=== PATIENT | female | born 1965 | race Caucasian/White ===

== ENCOUNTER 2017-12-24 17:17 | Inpatient (IN) | payer BC ==
[~2017-12-24] VITALS: Ht 160 cm; Wt 88.0 kg
[2017-12-24 16:40] VITALS: BP 108/50
[2017-12-24] MEDS ORDERED: ASPI-1159 PO ×2 (17:44→18:48)
[2017-12-24] MEDS ORDERED: LOSA50TA20 MT (17:44)
[2017-12-24 18:00] VITALS: BP 128/91
[2017-12-24] MEDS ORDERED: ONDANSETRON HCL 4MG/2ML VIAL IV PRN (18:00)
[2017-12-24] MEDS ORDERED: DIPHENHYDRAMINE 50MG/ML VIAL IV PRN (18:00)
[2017-12-24] MEDS ORDERED: CLONIDINE 0.1MG TABLET PO PRN (18:00)
[2017-12-24] MEDS ORDERED: IPRATROPIUM/ALBUTEROL 0.5-3(2.5)MG/3ML NEB INH PRN (18:00)
[2017-12-24] MEDS ORDERED: NA PHOS,M-B/NA PHOS,DI-BA ENEMA 118ML PR PRN (18:00)
[2017-12-24] MEDS ORDERED: ACETAMINOPHEN 650MG/20.3ML UDC GT PRN (18:00)
[2017-12-24] MEDS ORDERED: HYDROCODONE/ACETAMINOPHEN 5/325MG TABLET PO PRN (18:00)
[2017-12-24] MEDS ORDERED: ACETAMINOPHEN 650MG SUPP PR PRN (18:00)
[2017-12-24] MEDS ORDERED: MAGNESIUM/ALUMINUM HYDROXIDE/SIMETHICONE 30ML UDC PO PRN (18:00)
[2017-12-24] MEDS ORDERED: MORPHINE SULFATE 2 MG/ML CPJ (NOT FOR IM USE) IV PRN (18:00)
[2017-12-24] MEDS ORDERED: ACETAMINOPHEN 325MG TABLET PO PRN (18:00)
[2017-12-24] MEDS ORDERED: ONDANSETRON 4MG ODT PO PRN (18:30)
[2017-12-24] MEDS ORDERED: LEVO50TA8 PO (18:48)
[2017-12-24] MEDS ORDERED: ACET-2853 PO (18:48)
[2017-12-24] MEDS ORDERED: AMLO5TAB88 PO (18:48)
[2017-12-24] MEDS ORDERED: PANT40TA4 PO (18:48)
[2017-12-24] MEDS ORDERED: METO-539 PO (18:48)
[2017-12-24] MEDS ORDERED: LOSA50TA20 PO (18:48)
[2017-12-24] MEDS ORDERED: ATOR40TA70 PO (18:48)
[2017-12-24] MEDS ORDERED: ENOX40DI8 SQ (18:48)
[2017-12-24 20:12] VITALS: BP 106/74
[2017-12-24] MEDS ORDERED: NITRO TOP (20:36)
[2017-12-24] MEDS ORDERED: NITROGLYCERIN TOP SCH (20:45)
[2017-12-24] MEDS: NITROGLYCERIN OINT 1GM/INCH UDPKT TD SCH (21:00)
[2017-12-24 21:29] LABS: CLARITY URINE CLEAR (CLEAR); COLOR URINE YELLOW (YELLOW); KETONES URINE NEGATIVE (NEGATIVE); NITRITE URINE NEGATIVE (NEGATIVE); OCCULT BLOOD URINE NEGATIVE (NEGATIVE); PROTEIN URINE NEGATIVE (NEGATIVE); SPECIFIC GRAVITY URINE 1.016 (1.005-1.030)
[2017-12-24 21:30] LABS: LEUKOCYTE ESTERASE URINE NEGATIVE (NEGATIVE); UROBILINOGEN URINE 0.2 E.U./dL (0.2-1.0)
[2017-12-24] MEDS: METOPROLOL TARTRATE 50MG TABLET PO SCH (21:36)
[2017-12-24] MEDS: LOSARTAN POTASSIUM 50 MG TABLET PO SCH (21:37)
[2017-12-24 21:48] LABS: *AMPHETAMINES SCREEN URINE NEGATIVE (NEGATIVE); *BARBITURATES SCREEN URINE NEGATIVE (NEGATIVE); *BENZODIAZEPINES SCREEN URINE NEGATIVE (NEGATIVE); *COCAINE SCREEN URINE NEGATIVE (NEGATIVE); METHADONE URINE SCREEN NEGATIVE (NEGATIVE)
[2017-12-24 21:49] LABS: CANNABINOID URINE SCREEN NEGATIVE (NEGATIVE); OPIATES URINE SCREEN NEGATIVE (NEGATIVE); PHENCYCLIDINE URINE SCREEN NEGATIVE (NEGATIVE)
[2017-12-24] MEDS ORDERED: ENOXAPARIN 80MG/0.8ML SYR SUBCUT NR (21:53)
[2017-12-24 22:00] VITALS: BP 101/68
[2017-12-24] MEDS ORDERED: MEDICATION NOT ON FORMULARY EA (Losartan Potassium 50 MG) PO SCH (22:00)
[2017-12-24] MEDS ORDERED: MEDICATION NOT ON FORMULARY EA (Metoprolol Tartrate 50 MG) PO SCH (22:00)
[2017-12-24] MEDS: SODIUM CHLORIDE 0.9% INJ 3ML FLUSH IVF SCH (23:07)
[2017-12-24 23:30] LABS: HEMATOCRIT 38.1 % (36.0-48.0); MEAN CORPUSCULAR HEMOGLOBIN 32.3 pg (28.0-32.0); MEAN CORPUSCULAR VOLUME 94.1 fL (81.0-99.0); PLATELET 271 x1000/uL (130-400); RED BLOOD CELL COUNT 4.04 mill/uL (4.2-5.4); RED CELL DISTRIBUTION WIDTH 13.7 % (11.6-14.6)
[2017-12-24 23:35] LABS: CHLORIDE 105 mEq/L (98-107)
[2017-12-24 23:42] LABS: LDL CHOLESTEROL 138 mg/dL (5-100)
[2017-12-24 23:44] LABS: CREATINE KINASE 102 IU/L (26-192); HDL CHOLESTEROL 34 mg/dL (40-59)
[2017-12-24 23:46] LABS: CREATINE KINASE MB FRACTION 0.8 ng/mL (0.5-3.6)
[2017-12-25] VITALS (12 sets, daily range): BP systolic 97–137; BP diastolic 36–81
[2017-12-25] MEDS: NITROGLYCERIN OINT 1GM/INCH UDPKT TD SCH ×3 (02:37→15:00)
[2017-12-25] MEDS: SODIUM CHLORIDE 0.9% INJ 3ML FLUSH IVF SCH ×3 (06:30→21:59)
[2017-12-25] MEDS: PANTOPRAZOLE 40MG DR TABLET PO SCH (06:30)
[2017-12-25] MEDS ORDERED: MEDICATION NOT ON FORMULARY EA (Pantoprazole Sodium 40 MG) PO SCH (06:50)
[2017-12-25 07:02] LABS: BASOPHILS % 0.6 % (0.0-2.0); EOSINOPHILS % 3.7 % (0.0-5.0); HEMATOCRIT. 39.7 % (36.0-48.0); HEMOGLOBIN. 13.5 g/dL (12.0-16.0); LYMPHOCYTES % 30.7 % (20.0-50.0); MEAN CORPUSCULAR HEMOGLOBIN 32.1 pg (28.0-32.0); MEAN CORPUSCULAR VOLUME 94.1 fL (81.0-99.0); MEAN PLATELET VOLUME 9.4 fl (7.4-10.4); MONOCYTES % 10.1 % (2.0-8.0); NEUTROPHILS % 54.9 % (40.0-76.0); PLATELET 258 x1000/uL (130-400); RED BLOOD CELL COUNT 4.22 mill/uL (4.2-5.4); RED CELL DISTRIBUTION WIDTH 13.6 % (11.6-14.6)
[2017-12-25 07:08] LABS: CHLORIDE 104 mEq/L (98-107)
[2017-12-25 08:09] LABS: CREATINE KINASE MB FRACTION 0.6 ng/mL (0.5-3.6)
[2017-12-25 08:33] LABS: LDL CHOLESTEROL 133 mg/dL (5-100)
[2017-12-25 08:35] LABS: CREATINE KINASE 72 IU/L (26-192); HDL CHOLESTEROL 38 mg/dL (40-59)
[2017-12-25] MEDS ORDERED: ENOXAPARIN 100MG/ML SYR SUBCUT SCH (09:00)
[2017-12-25] MEDS ORDERED: MEDICATION NOT ON FORMULARY EA (Amlodipine Besylate 5 MG) PO SCH (09:00)
[2017-12-25] MEDS: LEVOTHYROXINE SODIUM 50MCG TABLET PO SCH (09:01)
[2017-12-25] MEDS: AMLODIPINE 5MG TABLET PO SCH (09:02)
[2017-12-25] MEDS: ATORVASTATIN CALCIUM 40MG TABLET PO SCH (09:02)
[2017-12-25] MEDS: METOPROLOL TARTRATE 50MG TABLET PO SCH ×2 (09:02→17:00)
[2017-12-25] MEDS: LOSARTAN POTASSIUM 50 MG TABLET PO SCH ×2 (09:16→17:00)
[2017-12-25] MEDS ORDERED: CLOPIDOGREL 75MG TABLET PO NR (12:00)
[2017-12-25 15:39] LABS: T4 FREE 1.02 ng/dL (0.76-1.46)
[2017-12-25 15:43] LABS: CREATINE KINASE MB FRACTION 0.6 ng/mL (0.5-3.6)
[2017-12-25] MEDS: ENOXAPARIN 100MG/ML SYR SUBCUT SCH (21:00)
[2017-12-26] VITALS (12 sets, daily range): BP systolic 87–123; BP diastolic 41–78
[2017-12-26 00:16] LABS: CREATINE KINASE MB FRACTION 0.5 ng/mL (0.5-3.6)
[2017-12-26] MEDS: SODIUM CHLORIDE 0.9% INJ 3ML FLUSH IVF SCH ×3 (06:42→22:16)
[2017-12-26] MEDS: PANTOPRAZOLE 40MG DR TABLET PO SCH (06:42)
[2017-12-26 07:29] LABS: CREATINE KINASE 58 IU/L (26-192)
[2017-12-26 07:30] LABS: CREATINE KINASE MB FRACTION < 0.5 ng/mL (0.5-3.6)
[2017-12-26] MEDS: LOSARTAN POTASSIUM 50 MG TABLET PO SCH ×2 (09:01→17:00)
[2017-12-26] MEDS: AMLODIPINE 5MG TABLET PO SCH (09:01)
[2017-12-26] MEDS: ENOXAPARIN 100MG/ML SYR SUBCUT SCH (09:01)
[2017-12-26] MEDS: LEVOTHYROXINE SODIUM 50MCG TABLET PO SCH (09:01)
[2017-12-26] MEDS: CLOPIDOGREL 75MG TABLET PO SCH (09:01)
[2017-12-26] MEDS: METOPROLOL TARTRATE 50MG TABLET PO SCH ×2 (09:02→17:00)
[2017-12-26] MEDS: ATORVASTATIN CALCIUM 40MG TABLET PO SCH (09:02)
[2017-12-27] VITALS (21 sets, daily range): BP systolic 86–170; BP diastolic 56–84
[2017-12-27] MEDS: SODIUM CHLORIDE 0.9% INJ 3ML FLUSH IVF SCH ×3 (05:50→21:29)
[2017-12-27] MEDS ORDERED: IODIXANOL 320MG/ML 100 ML BOTTLE IV ONE (07:52)
[2017-12-27] MEDS ORDERED: LIDOCAINE HCL 1% 20ML VIAL (Pyxis) INJ ONE (07:52)
[2017-12-27] MEDS ORDERED: MIDAZOLAM HCL 2 MG/2 ML VIAL ONE (08:20)
[2017-12-27 09:00] LABS: CHLORIDE 106 mEq/L (98-107)
[2017-12-27] MEDS: AMLODIPINE 5MG TABLET PO SCH (09:00)
[2017-12-27] MEDS: LOSARTAN POTASSIUM 50 MG TABLET PO SCH ×2 (09:00→16:46)
[2017-12-27] MEDS ORDERED: FENTANYL CITRATE/PF 50MCG/ML 2ML VIAL ONE (09:02)
[2017-12-27] MEDS ORDERED: CEFAZOLIN 1000MG PREMIX 50 ML IV ONE (09:03)
[2017-12-27 09:20] LABS: BASOPHILS % 0.7 % (0.0-2.0); EOSINOPHILS % 2.9 % (0.0-5.0); HEMATOCRIT. 45.7 % (36.0-48.0); HEMOGLOBIN. 15.3 g/dL (12.0-16.0); LYMPHOCYTES % 29.1 % (20.0-50.0); MEAN CORPUSCULAR HEMOGLOBIN 32.3 pg (28.0-32.0); MEAN CORPUSCULAR VOLUME 96.4 fL (81.0-99.0); MEAN PLATELET VOLUME 8.8 fl (7.4-10.4); MONOCYTES % 8.6 % (2.0-8.0); NEUTROPHILS % 58.7 % (40.0-76.0); PLATELET 274 x1000/uL (130-400); RED BLOOD CELL COUNT 4.74 mill/uL (4.2-5.4); RED CELL DISTRIBUTION WIDTH 13.6 % (11.6-14.6)
[2017-12-27] MEDS ORDERED: ATROPINE SULFATE 1MG/10ML SYR IV PRN (09:30)
[2017-12-27] MEDS ORDERED: ACETAMINOPHEN 325MG TABLET PO PRN (09:30)
[2017-12-27] MEDS: ATORVASTATIN CALCIUM 40MG TABLET PO SCH (11:34)
[2017-12-27] MEDS: METOPROLOL TARTRATE 50MG TABLET PO SCH ×2 (11:34→16:46)
[2017-12-27] MEDS: LEVOTHYROXINE SODIUM 50MCG TABLET PO SCH (11:34)
[2017-12-27] MEDS: FAMOTIDINE 20MG TABLET PO SCH ×2 (11:35→16:39)
[2017-12-27] MEDS: CLOPIDOGREL 75MG TABLET PO SCH (11:43)
[2017-12-28] VITALS (37 sets, daily range): BP systolic 87–212; BP diastolic 38–97
[2017-12-28] MEDS: SODIUM CHLORIDE 0.9% INJ 3ML FLUSH IVF SCH ×3 (06:12→22:15)
[2017-12-28 06:33] LABS: CHLORIDE 105 mEq/L (98-107)
[2017-12-28 06:44] LABS: BASOPHILS % 0.6 % (0.0-2.0); EOSINOPHILS % 3.1 % (0.0-5.0); HEMATOCRIT. 40.1 % (36.0-48.0); HEMOGLOBIN. 13.9 g/dL (12.0-16.0); LYMPHOCYTES % 26.4 % (20.0-50.0); MEAN CORPUSCULAR HEMOGLOBIN 32.7 pg (28.0-32.0); MEAN CORPUSCULAR VOLUME 94.7 fL (81.0-99.0); MEAN PLATELET VOLUME 8.6 fl (7.4-10.4); MONOCYTES % 9.6 % (2.0-8.0); NEUTROPHILS % 60.3 % (40.0-76.0); PLATELET 262 x1000/uL (130-400); RED BLOOD CELL COUNT 4.24 mill/uL (4.2-5.4); RED CELL DISTRIBUTION WIDTH 13.7 % (11.6-14.6)
[2017-12-28] MEDS ORDERED: LIDOCAINE HCL 1% 20ML VIAL (Pyxis) INJ ONE (07:30)
[2017-12-28] MEDS ORDERED: MIDAZOLAM HCL 2 MG/2 ML VIAL ONE ×2 (08:36→09:03)
[2017-12-28] MEDS ORDERED: FENTANYL CITRATE/PF 50MCG/ML 2ML VIAL ONE (08:36)
[2017-12-28] MEDS ORDERED: IODIXANOL 320MG/ML 100 ML BOTTLE IV ONE (08:40)
[2017-12-28] MEDS: CLOPIDOGREL 75MG TABLET PO SCH ×2 (09:00→11:00)
[2017-12-28] MEDS: LOSARTAN POTASSIUM 50 MG TABLET PO SCH ×2 (09:00→17:00)
[2017-12-28] MEDS ORDERED: IOHEXOL-300 100 ML BOTTLE ONE (09:02)
[2017-12-28] MEDS ORDERED: FUROSEMIDE 20MG/2ML VIAL ONE (09:17)
[2017-12-28] MEDS ORDERED: IODIXANOL 320MG/ML 200ML BOTTLE ONE (09:18)
[2017-12-28] MEDS ORDERED: CLOPIDOGREL 75MG TABLET ONE (09:40)
[2017-12-28] MEDS ORDERED: ONDANSETRON HCL 4MG/2ML VIAL IV PRN (10:00)
[2017-12-28] MEDS ORDERED: ACETAMINOPHEN 325MG TABLET PO PRN (10:30)
[2017-12-28] MEDS ORDERED: ATROPINE SULFATE 1MG/10ML SYR IV PRN (10:30)
[2017-12-28] MEDS: ASPIRIN 81MG TABLET PO SCH (11:00)
[2017-12-28] MEDS: SODIUM CHLORIDE 0.45% 1,000 ML IV SCH ×2 (11:45→20:34)
[2017-12-28] MEDS: ATORVASTATIN CALCIUM 40MG TABLET PO SCH (13:33)
[2017-12-28] MEDS: LEVOTHYROXINE SODIUM 50MCG TABLET PO SCH (13:34)
[2017-12-28] MEDS: AMLODIPINE 5MG TABLET PO SCH (13:34)
[2017-12-28] MEDS: FAMOTIDINE 20MG TABLET PO SCH ×2 (13:34→20:34)
[2017-12-28] MEDS: METOPROLOL TARTRATE 50MG TABLET PO SCH ×2 (13:35→17:00)
[2017-12-28] MEDS: NITROGLYCERIN 0.4MG TABLET SL SL PRN ×2 (13:57→14:05)
[2017-12-28] MEDS ORDERED: NITROGLYCERIN OINT 1GM/INCH UDPKT TD SCH (14:30)
[2017-12-28] MEDS ORDERED: HYDROMORPHONE HCL/PF 2MG/ML CPJ IV ONE (14:30)
[2017-12-28] MEDS ORDERED: HEPARIN SODIUM 1,000 UNIT/1ML VIAL IV ONE (14:39)
[2017-12-28 17:16] LABS: CREATINE KINASE MB FRACTION 2.3 ng/mL (0.5-3.6)
[2017-12-28] MEDS ORDERED: ACETAMINOPHEN 325MG TABLET PO NR (20:30)
[2017-12-29 04:00] VITALS: BP 108/74
[2017-12-29] MEDS: SODIUM CHLORIDE 0.45% 1,000 ML IV SCH (04:48)
[2017-12-29] MEDS: SODIUM CHLORIDE 0.9% INJ 3ML FLUSH IVF SCH (04:49)
[2017-12-29 06:18] VITALS: BP 116/62
[2017-12-29 06:57] LABS: BASOPHILS % 0.6 % (0.0-2.0); EOSINOPHILS % 2.6 % (0.0-5.0); HEMATOCRIT. 38.8 % (36.0-48.0); HEMOGLOBIN. 13.3 g/dL (12.0-16.0); LYMPHOCYTES % 18.8 % (20.0-50.0); MEAN CORPUSCULAR HEMOGLOBIN 32.4 pg (28.0-32.0); MEAN CORPUSCULAR VOLUME 94.5 fL (81.0-99.0); MEAN PLATELET VOLUME 8.8 fl (7.4-10.4); MONOCYTES % 10.4 % (2.0-8.0); NEUTROPHILS % 67.6 % (40.0-76.0); PLATELET 258 x1000/uL (130-400); RED CELL DISTRIBUTION WIDTH 13.7 % (11.6-14.6)
[2017-12-29 07:01] LABS: CHLORIDE 105 mEq/L (98-107)
[2017-12-29] MEDS ORDERED: CLOPIDOGREL 75MG TABLET PO SCH (09:00)
[2017-12-29 09:15] VITALS: BP 138/88
[2017-12-29 10:23] VITALS: BP 133/81
[2017-12-29] MEDS: FAMOTIDINE 20MG TABLET PO SCH (10:28)
[2017-12-29] MEDS: AMLODIPINE 5MG TABLET PO SCH (10:29)
[2017-12-29] MEDS: ATORVASTATIN CALCIUM 40MG TABLET PO SCH (10:29)
[2017-12-29] MEDS: LEVOTHYROXINE SODIUM 50MCG TABLET PO SCH (10:29)
[2017-12-29] MEDS: LOSARTAN POTASSIUM 50 MG TABLET PO SCH (10:29)
[2017-12-29] MEDS: ASPIRIN 81MG TABLET PO SCH (10:30)
[2017-12-29] MEDS: CLOPIDOGREL 75MG TABLET PO SCH (10:30)
[2017-12-29] MEDS: METOPROLOL TARTRATE 50MG TABLET PO SCH (10:30)
[2017-12-29 11:07] VITALS: BP 133/81
== END 2017-12-29 14:36 | disposition home or self-care (01) | DRG 247 ==
LOC: 3WST 17:17
PROVIDERS: ADMIT Family Medicine; ATTEND Family Medicine
PROC: 4A023N7 Measurement of Cardiac Sampling and Pressure, Left Heart, Percutaneous Approach (ICD-10-PCS; principal; 2017-12-27)
PROC: B2111ZZ Fluoroscopy of Multiple Coronary Arteries using Low Osmolar Contrast (ICD-10-PCS; 2017-12-27)
PROC: 027136Z Dilation of Coronary Artery, Two Arteries with Three Drug-eluting Intraluminal Devices, Percutaneous Approach (ICD-10-PCS; 2017-12-28)
DX: I21.4 Non-ST elevation (NSTEMI) myocardial infarction (principal); I10 Essential (primary) hypertension; E03.9 Hypothyroidism, unspecified; E66.9 Obesity, unspecified; E78.5 Hyperlipidemia, unspecified; F17.210 Nicotine dependence, cigarettes, uncomplicated; J45.909 Unspecified asthma, uncomplicated; I25.10 Atherosclerotic heart disease of native coronary artery without angina pectoris; Z82.49 Family history of ischemic heart disease and other diseases of the circulatory system; Z88.5 Allergy status to narcotic agent; Z68.34 Body mass index [BMI] 34.0-34.9, adult; Z79.899 Other long term (current) drug therapy; Z79.82 Long term (current) use of aspirin; Z71.6 Tobacco abuse counseling
CPT/HCPCS: 36415; 80048; 80053; 80061; 80305; 81003; 82550; 82553; 83036; 83880; 84439; 84443; 84484; 85025; 85027; 85347; 85379; 85610; 92928; 92929; 93005; 93306; 93454; 93458; 93970; C1725; C1760; C1769; C1874; C1887; C1893; J0690; J1644; J1650; J1940; J2250; J2405; J3010; J3490; Q9967